=== PATIENT | male | born 1990 | race Hispanic/Latino ===

== ENCOUNTER 2018-08-23 21:11 | Emergency (ER) | payer SELFPAY ==
[2018-08-23 21:18] VITALS: BP 141/81; O2SAT 99
--- NOTE | 2018-08-23 22:05 | ED PDOC ---
Upper Extremity Pain/Injury Time Seen by Provider: 08/23/18 21:54 Chief Complaint (Nursing): Upper Extremity Problem/Injury Chief Complaint (Provider): left arm injury History Per: Patient History/Exam Limitations: no limitations Onset/Duration Of Symptoms: Hrs (1) Current Symptoms Are (Timing): Still Present Additional Complaint(s): 28 y/o male presents for evaluation of pain/swelling to left shoulder area x 1 hour. Patient states he was wrestling recreationally and while being pinned down he landed with all his weight on left shoulder. Patient states he is able to move left shoulder but reports pain to collar bone with associated swelling. Denies numbness/weakness left upper extremity. No medication taken for relief thus far Past Medical History Reviewed: Historical Data, Nursing Documentation, Vital Signs Vital Signs: Last Vital Signs Temp 96.2 F L 08/23/18 21:15 Pulse 110 H 08/23/18 21:15 Resp 20 08/23/18 21:15 BP 141/81 08/23/18 21:15 Pulse Ox 99 08/23/18 21:15 - Medical History PMH: No Chronic Diseases - Surgical History Surgical History: No Surg Hx - Family History Family History: States: No Known Family Hx - Living Arrangements Living Arrangements: With Family - Home Medications Home Medications: Ambulatory Orders Medication Instructions Recorded Ibuprofen [Motrin Tab] 1 tab PO Q6 PRN #20 tab 08/23/18 - Allergies Allergies/Adverse Reactions: Allergies Allergy/AdvReac Type Severity Reaction Status Date / Time No Known Allergies Allergy Verified 08/23/18 21:15 Review of Systems ROS Statement: Except As Marked, All Systems Reviewed And Found Negative Musculoskeletal: Positive for: Shoulder Pain Physical Exam - Reviewed Nursing Documentation Reviewed: Yes Vital Signs Reviewed: Yes - Physical Exam Appears: Positive for: Well, Non-toxic, Uncomfortable Pulses-Radial (L): 2+ Pulses-Radial (R): 2+ Extremity: Positive for: Capillary Refill (<3 sec b/l UE). Negative for: Normal ROM (limited ROM left upper extremity due to pain at mid left collar bone. + localized swelling mid left collar bone, no tenting.) Neurologic/Psych: Positive for: Alert, Oriented (x3). Negative for: Motor/Se nsory Deficits - ECG O2 Sat by Pulse Oximetry: 99 - Progress ED Course And Treament: -xray left clavicle -ibuprofen PO Case discussed with Dr. Duffy, ortho on-call; recommends follow up in office Patient educated on findings, left arm sling applied. Rx Ibuprofen given Patient instructed to call ortho in the am to arrange follow up appointment Return precautions given Disposition - Clinical Impression Clinical Impression: Closed left clavicular fracture - Patient ED Disposition Is Patient to be Admitted: No Counseled Patient/Family Regarding: Studies Performed, Diagnosis, Need For Followup, Rx Given - Disposition Referrals: Ector Duffy MD [Staff Provider] - Disposition: Routine/Home Disposition Time: 23:57 Condition: IMPROVED Prescriptions: Ibuprofen [Motrin Tab] 1 tab PO Q6 PRN #20 tab PRN Reason: Pain, Moderate (4-7) Instructions: Clavicle Fracture Forms: [facility] ([place])
[2018-08-24 00:13] VITALS: PULSE 85; RESP 18; TEMP 98.3
--- NOTE | 2018-08-24 08:07 | RAD ---
Date of service: 08/23/2018 PROCEDURE: Radiographs of the left clavicle. HISTORY: injury, swelling COMPARISON: None. FINDINGS: LEFT CLAVICLE: A mid to slightly lateral complete fracture is present. Distally the fracture is 5 to 6 mm inferiorly displaced. The acromioclavicular joint and the glenohumeral joint are maintained. JOINTS: Left acromioclavicular and glenohumeral joints are grossly unremarkable. SOFT TISSUES: Left periclavicular soft tissue swelling. OTHER FINDINGS: None. IMPRESSION: Displaced left mid clavicular shaft fracture Comments: Study marked for PA review .
== END 2018-08-24 00:15 | disposition home or self-care (01) ==
LOC: H.ER 21:11
DX: S42.002A Fracture of unspecified part of left clavicle, initial encounter for closed fracture (principal); X50.9XXA Other and unspecified overexertion or strenuous movements or postures, initial encounter; Y92.89 Other specified places as the place of occurrence of the external cause